=== PATIENT | female | born 1970 | race Caucasian/White ===

== ENCOUNTER 2019-06-30 12:41 | Emergency (ER) | payer OTHER ==
[~2019-06-30] VITALS: Ht 165.1 cm; Wt 64.9 kg
--- NOTE | 2019-06-30 12:45 | NUR ---
DR Brooks at the bedside for MSE.
[2019-06-30 13:13] VITALS: BP 123/64
--- NOTE | 2019-06-30 13:15 | NUR ---
Patient discharged to home in stable conditon. Written and verbal after care instructions given. Patient verbalizes understanding of instructions. Pt walked out of ER accompained by family.
== END 2019-06-30 13:16 | disposition home or self-care (01) ==
LOC: ER 12:41
DX: M79.604 Pain in right leg (principal); M79.89 Other specified soft tissue disorders
CPT/HCPCS: A4663